=== PATIENT | female | born 1955 | race Caucasian/White ===

== ENCOUNTER 2018-02-04 06:03 | Inpatient (IN) | payer BC, OTHER ==
[~2018-02-04] VITALS: Ht 162.6 cm; Wt 75.5 kg
--- NOTE | ~2018-02-04 | EKG ---
[address] [address] ELECTROCARDIOGRAM REPORT Name: SLIM MARTINEZ Room #: 150-4 ADM IN M.R.#: [id number] Admission: 02/04/18 Attend Phys: Dionicio Aguilar MD, Discharge: Date of : 53 Report #: [id number] THIS REPORT FOR: //name// [facility] Test Date: 2018-02-04 Test Time: 07:21:05 Pat Name: SLIM MARTINEZ Department: Room: 150 4 Gender: F Unloader: SAMI : 1955 Requested By: Jeronimo Artis Order Number: [id number] MD: Rey Boogie Measurements Intervals [place] Rate: 83 P: 61 CO: 124 QRS: 13 QRSD: 97 T: 33 QT: 372 QTc: 437 Interpretive Statements Sinus rhythm Normal tracing Baseline wander in lead(s) III,aVF,V3 No previous ECG available for comparison Electronically Signed On 02-04-2018 8:24:21 CDT by Rey Boogie [email or web address] <ELECTRONICALLY SIGNED> By: Rey Boogie MD, [facility] 02/04/18823 0 0 Rey Boogie MD, [facility] /EPI
--- NOTE | ~2018-02-04 | PATH ---
Formerly [facility] [address] [place] [address] PATHOLOGY RPT PROCEDURE Name: SLIM MAZARIEGOS Room #: 225-P ADM IN M.R.#: [id number] Admission: 02/04/18 Date of : 53 Discharge: Report #: [id number] Path Case #: [id number] [facility] Accession Number: [id number] . 01 Material submitted: . L COLON-OPEN END PROX WITH COLON RINGS, PROX RING WITH PURSE STRINGS . 01 Clinical history: . Colon cancer . 02 Diagnosis: Large intestine, left colon, left hemicolectomy: - INVASIVE MODERATELY DIFFERENTIATED COLONIC ADENOCARCINOMA, MEASURING 2.4 X 1.8 CM AND INVADING INTO SUBSEROSAL TISSUE (PLEASE SEE SYNOPTIC REPORT ASSEMBLED). - MARGINS OF RESECTION WIDELY FREE OF MALIGNANCY; CLOSEST PROXIMAL MARGIN IS 5.0 CM AWAY. - Eighteen reactive lymph nodes showing no evidence of malignancy (0/18). . SURGICAL PATHOLOGY CANCER CASE SYNOPTIC SUMMARY: . COLON AND RECTUM: Resection, Including Transanal Disk Excision of Rectal Neoplasms . Procedure ___ Robotic left hemicolectomy . Tumor Site ___ Left (descending) colon . Tumor Size Greatest dimension (centimeters): 2.4 cm . Macroscopic Tumor Perforation ___ Not identified . Histologic Type ___ Adenocarcinoma . Histologic Grade ___ G2: Moderately differentiated . Tumor Extension ___ Tumor invades through the muscularis propria into pericolorectal tissue . Margins ___ All margins are uninvolved by invasive carcinoma, high-grade [facility] [address] [place] [address] PATHOLOGY RPT PROCEDURE Name: MAZARIEGOS,LSIM Room #: 225-P ADM IN M.R.#: [id number] Admission: 02/04/18 Date of : 53 Discharge: Report #: [id number] Path Case #: [id number] dysplasia, intramucosal adenocarcinoma, and adenoma Margins examined: Distance of invasive carcinoma from closest margin: 5.0 cm Specify closest margin: proximal margin . Treatment Effect ___ No known presurgical therapy . Lymphovascular Invasion ___ Not identified . Perineural Invasion ___ Not identified . Tumor Deposits ___ Not identified . Regional Lymph Nodes . Number of Lymph Nodes Involved: 0 . Number of Lymph Nodes Examined: 18 . Pathologic Stage Classification (pTNM, AJCC 8th Edition) Note: Reporting of pT, pN, and (when applicable) pM categories is based on information available to the pathologist at the time the report is issued. . . Primary Tumor (pT) ___ pT3: Tumor invades through the muscularis propria into pericolorectal tissues . Regional Lymph Nodes (pN) ___ pN0: No regional lymph node metastasis . Distant Metastasis (pM) (required only if confirmed pathologically in this case) ___ pMx: Not known (IUV/db; 02/06/18) LBQ/02/07/2018 . 02 Comment: MSI markers (four immunohistochemical stains) are ordered on block A6. The results will be reported in an addendum to follow. . 02 Electronically signed: . Sherley Begum MD, Pathologist [address] [address] PATHOLOGY RPT PROCEDURE Name: SLIM MAZARIEGOS Room #: 225-P [facility] IN ..#: [id number] Admission: 02/04/18 Date of : 53 Discharge: Report #: [id number] Path Case #: [id number] I- [id number] . 01 Gross description: . The specimen is received in formalin, labeled "Slim Mazariegos, left colon-open end proximal with colon rings, proximal ring with purse string" and consists of an intact segment of large intestine measuring 34.5 cm in length and 1.6 cm in diameter with pericolic fat lining the entire specimen ranging from 2.5-4.8 cm. One end of the specimen is closed with bernardino (distal) and the opposite end is open (designated proximal). Also present in the container are 2 anastomotic rings measuring 1.8 x 1.0 x 1.2 cm and 1.8 x 1.3 x 0.5 cm. One ring has a suture/string present designating the proximal ring. The serosa is pink-jordan with an area of black tattoo ink which extends 4.8 cm from the proximal margin. Opening the specimen reveals a sessile jordan mass with rolled edges (2.4 x 1.8 cm) which correlates to the black tattoo ink and extends 5.0 cm from the proximal margin, greater than 15 cm from the distal margin, and 3.1 cm from the mesenteric margin. The mesenteric margin is inked blue and the serosa black. The remainder of the mucosa is pink-jordan with an additional possible polyp measuring 0.5 x 0.4 cm that extends 10.0 cm distal from the primary mass, greater than 14 cm from the distal margin, and greater than 15 cm from the proximal margin. The specimen is then placed back in formalin for additional fixation overnight. (SDY; 02/04/2018) . After additional overnight fixation sectioning reveals the mass appears to invade the muscular wall but does not grossly abut the black inked serosa. The pericolic fat is sectioned and placed in clearing solution to reveal multiple lymph node candidates ranging from 0.1 cm to 0.4 cm. [employer] Supervisor sections are submitted as follows: . A1: Proximal margin A2: Distal margin A3: Greatest muscular wall invasion A4-A6: Remainder of mass A7: Mesenteric margin, perpendicular A8: Additional possible polyp A9-A11: Intact lymph node candidates (SDY; 02/05/2018) SYU/QAC . 02 Pathologist provided ICD-10: C18.6 . 02 CPT . 311323, G07616, C09509 Specimen Comment: A courtesy copy of this report has been sent to Specimen Comment: [phone], , . Specimen Comment: Report sent to ,DR KOO / DR SWIFT [address] [address] PATHOLOGY RPT PROCEDURE Name: SLIM MAZARIEGOS Room #: 225-P ADM IN M.R.#: [id number] Admission: 02/04/18 Date of : 53 Discharge: Report #: [id number] Path Case #: [id number] [facility]: [facility] [address] [facility] [address] [place], [place] [id number] MD Juan Antonio Issa MD Phone: [phone] Performed at: [address] [id number] MD Sherley Begum MD Phone: [phone]
[~2018-02-04 06:03] MED LIST: CENTRUM SILVER1 EAC4 PO; VESICARE 5 MG TA5 MG PO; VITAMIN D32000 UNI1 PO
[2018-02-04 07:37] VITALS: BP 132/79
[2018-02-04 07:48] LABS: HEMATOCRIT 36.9 % (37.0-47.0); HEMOGLOBIN 12.4 gm/dL (12.0-15.0)
[2018-02-04 16:23] VITALS: BP 122/75
[2018-02-04 19:18] VITALS: BP 103/60
[2018-02-04 22:58] VITALS: BP 116/70
[2018-02-05 04:24] LABS: HEMOGLOBIN 10.7 gm/dL (12.0-15.0); MCH 27.1 pg (26.0-34.0); MCHC 32.3 g/dL (28.0-37.0); MCV 83.9 fL (80.0-100.0); RBC 3.93 mil/uL (4.20-5.00); RDW 13.7 % (10.5-14.5); WBC 8.9 thou/uL (4.0-11.0)
[2018-02-05 04:42] LABS: CALCIUM 8.2 mg/dL (8.5-10.1); CREATININE 0.7 mg/dL (0.6-1.0); POTASSIUM 4.1 mmol/L (3.5-5.1)
[2018-02-05 07:28] VITALS: BP 121/75
[2018-02-05 18:42] VITALS: BP 125/76
[2018-02-06 07:15] LABS: BASOPHILS 0.2 % (0.0-2.0); EOSINOPHILS 0.5 % (0.0-3.0); HEMOGLOBIN 9.8 gm/dL (12.0-15.0); LYMPHOCYTES 10.2 % (24.0-44.0); MCHC 33.7 g/dL (28.0-37.0); MCV 83.1 fL (80.0-100.0); MONOCYTES 5.4 % (1.0-8.0); PLATELET COUNT 219 thou/uL (150-400); POLYS 83.7 % (36.0-66.0); RBC 3.49 mil/uL (4.20-5.00); RDW 14.1 % (10.5-14.5); WBC 8.4 thou/uL (4.0-11.0)
[2018-02-06 07:27] LABS: CALCIUM 8.3 mg/dL (8.5-10.1); CREATININE 0.6 mg/dL (0.6-1.0); POTASSIUM 4.1 mmol/L (3.5-5.1)
[2018-02-06 08:12] VITALS: BP 108/60
[2018-02-06 19:53] VITALS: BP 128/76
[2018-02-07 07:36] LABS: ABSOLUTE NEUTROPHILS 7.1 thou/uL (1.4-8.2); BASOPHILS 0.3 % (0.0-2.0); EOSINOPHILS 1.4 % (0.0-3.0); HEMATOCRIT 28.1 % (37.0-47.0); HEMOGLOBIN 9.3 gm/dL (12.0-15.0); LYMPHOCYTES 13.9 % (24.0-44.0); MCH 27.6 pg (26.0-34.0); MCHC 33.2 g/dL (28.0-37.0); MCV 83.3 fL (80.0-100.0); MONOCYTES 5.1 % (1.0-8.0); PLATELET COUNT 224 thou/uL (150-400); POLYS 79.3 % (36.0-66.0); RBC 3.37 mil/uL (4.20-5.00)
[2018-02-07 07:40] VITALS: BP 114/67
[2018-02-07 07:43] LABS: CALCIUM 8.2 mg/dL (8.5-10.1); CREATININE 0.6 mg/dL (0.6-1.0); POTASSIUM 4.2 mmol/L (3.5-5.1)
[2018-02-07] MEDS ORDERED: OXYCODONE HCL 55 MG PO (09:04)
[2018-02-07 13:11] VITALS: BP 114/67
== END 2018-02-07 14:50 | disposition home or self-care (01) | DRG 331 ==
LOC: 4W 06:03 → TBA 06:03 → PRE 08:58 → 4W 16:12 → PRE 16:32 → SICU 02-05 18:41 → ENTRNSPT 02-07 14:25 → EDTRNSPTSTS 02-07 14:33 → SICU 02-07 14:50
PROVIDERS: Anesthesiology; Surgery
PROC: 0DTG4ZZ Resection of Left Large Intestine, Percutaneous Endoscopic Approach (ICD-10-PCS; principal; 2018-02-04)
PROC: 0DNL4ZZ Release Transverse Colon, Percutaneous Endoscopic Approach (ICD-10-PCS; principal; 2018-02-04)
DX: C18.6 Malignant neoplasm of descending colon (principal); I10 Essential (primary) hypertension; K21.9 Gastro-esophageal reflux disease without esophagitis; N73.6 Female pelvic peritoneal adhesions (postinfective); Z88.8 Allergy status to other drugs, medicaments and biological substances; Z82.49 Family history of ischemic heart disease and other diseases of the circulatory system; Z79.899 Other long term (current) drug therapy; Z82.3 Family history of stroke; Z80.3 Family history of malignant neoplasm of breast; Z90.49 Acquired absence of other specified parts of digestive tract; Z83.3 Family history of diabetes mellitus; Z87.891 Personal history of nicotine dependence
CPT/HCPCS: 10047; 15002; 49000; 50010; 50101; 50249; 50290; 50386; 50455; 50525; 50555; 50558; 50740; 50804; 51398; 51489; 52265; 54022; 54118; 56525; 56526; 56527; 56632; 56641; 56753; 57092; 57108; 57130; 57131; 57154; 57182; 62110; 62900; 64029; 65002; 70005